=== PATIENT | female | born 1980 | race African-American/Black ===

== ENCOUNTER 2018-06-06 18:05 | Emergency (ER) | payer MEDICARE, MEDICAID ==
[~2018-06-06] VITALS: Ht 157.5 cm; Wt 55.0 kg
[2018-06-06 18:12] VITALS: BP 156/96
== END 2018-06-07 04:06 | disposition left against medical advice (07) ==
LOC: ER 20:26
DX: Z53.21 Procedure and treatment not carried out due to patient leaving prior to being seen by health care provider (principal); F17.200 Nicotine dependence, unspecified, uncomplicated
CPT/HCPCS: 93005

== ENCOUNTER 2018-09-14 11:03 | Emergency (ER) | payer MEDICARE, MEDICAID ==
[~2018-09-14] VITALS: Ht 162.6 cm; Wt 60.0 kg
[2018-09-14] MEDS ORDERED: ACETAMINOPHEN 325MG TABLET PO STA (11:32)
[2018-09-14 11:52] LABS: BASOPHILS % 1.7 % (0.0-2.0); EOSINOPHILS % 2.7 % (0.0-5.0); HEMATOCRIT. 40.4 % (36.0-48.0); HEMOGLOBIN. 13.4 g/dL (12.0-16.0); LYMPHOCYTES % 46.5 % (20.0-50.0); MEAN CORPUSCULAR HEMOGLOBIN 31.3 pg (28.0-32.0); MEAN CORPUSCULAR VOLUME 93.9 fL (81.0-99.0); MEAN PLATELET VOLUME 6.9 fl (7.4-10.4); MONOCYTES % 4.4 % (2.0-8.0); NEUTROPHILS % 44.7 % (40.0-76.0); PLATELET 258 x1000/uL (130-400); RED CELL DISTRIBUTION WIDTH 14.1 % (11.6-14.6)
[2018-09-14 11:55] LABS: CHLORIDE 108 mEq/L (98-107)
[2018-09-14 12:12] LABS: HCG SCREEN NEGATIVE
[2018-09-14 13:15] VITALS: BP 124/71
== END 2018-09-14 13:23 | disposition home or self-care (01) ==
LOC: ER 11:18
DX: R07.89 Other chest pain (principal); F15.10 Other stimulant abuse, uncomplicated
CPT/HCPCS: 36415; 71045; 83880; 84484; 84703; 93005; 99284

== ENCOUNTER 2018-09-29 07:34 | Emergency (ER) | payer MEDICARE, MEDICAID ==
[~2018-09-29] VITALS: Ht 170.2 cm; Wt 60.0 kg
[2018-09-29 08:24] LABS: BASOPHILS % 0.7 % (0.0-2.0); EOSINOPHILS % 0.7 % (0.0-5.0); HEMATOCRIT. 40.8 % (36.0-48.0); HEMOGLOBIN. 13.8 g/dL (12.0-16.0); LYMPHOCYTES % 30.5 % (20.0-50.0); MEAN CORPUSCULAR HEMOGLOBIN 31.6 pg (28.0-32.0); MEAN CORPUSCULAR VOLUME 92.9 fL (81.0-99.0); MEAN PLATELET VOLUME 7.1 fl (7.4-10.4); MONOCYTES % 4.4 % (2.0-8.0); NEUTROPHILS % 63.7 % (40.0-76.0); PLATELET 280 x1000/uL (130-400); RED BLOOD CELL COUNT 4.39 mill/uL (4.2-5.4)
[2018-09-29 08:28] LABS: CHLORIDE 105 mEq/L (98-107)
[2018-09-29 08:31] LABS: ETHANOL BLOOD < 10 mg/dL
[2018-09-29 09:38] LABS: CLARITY URINE CLOUDY (CLEAR); COLOR URINE DARK YELLOW (YELLOW); KETONES URINE 2+ (NEGATIVE); LEUKOCYTE ESTERASE URINE TRACE (NEGATIVE); NITRITE URINE NEGATIVE (NEGATIVE); OCCULT BLOOD URINE 3+ (NEGATIVE); PH URINE 5.5 (4.5-8.0); PROTEIN URINE 2+ (NEGATIVE); SPECIFIC GRAVITY URINE 1.027 (1.005-1.030)
[2018-09-29 09:57] LABS: OPIATES URINE SCREEN NEGATIVE (NEGATIVE)
[2018-09-29 09:59] LABS: *BARBITURATES SCREEN URINE NEGATIVE (NEGATIVE); *BENZODIAZEPINES SCREEN URINE NEGATIVE (NEGATIVE)
[2018-09-29 10:00] LABS: METHADONE URINE SCREEN NEGATIVE (NEGATIVE); PHENCYCLIDINE URINE SCREEN NEGATIVE (NEGATIVE)
[2018-09-29 10:05] LABS: *AMPHETAMINES SCREEN URINE PRESUMTIVE POSITIVE (NEGATIVE); *COCAINE SCREEN URINE PRESUMTIVE POSITIVE (NEGATIVE); CANNABINOID URINE SCREEN PRESUMTIVE POSITIVE (NEGATIVE)
[2018-09-29] MEDS ORDERED: LORAZEPAM 2MG/ML CPJ IM STA (10:29)
[2018-09-29] MEDS ORDERED: OLANZAPINE 10 MG/VIAL IM ONE (10:30)
[2018-09-30 15:00] VITALS: BP 108/66
== END 2018-09-30 15:19 | disposition home or self-care (01) ==
LOC: ER 07:34
DX: F15.10 Other stimulant abuse, uncomplicated (principal); F14.10 Cocaine abuse, uncomplicated; F12.10 Cannabis abuse, uncomplicated; F31.9 Bipolar disorder, unspecified; F20.9 Schizophrenia, unspecified; G40.909 Epilepsy, unspecified, not intractable, without status epilepticus; Z59.0 Homelessness
CPT/HCPCS: 36415; 80053; 80305; 80320; 81003; 81025; 85025; 96372; 99283; J2060; J3490; G0480